=== PATIENT | female | born 1935 | race Caucasian/White ===

== ENCOUNTER → 2017-01-07 | Outpatient (CLI) | payer OTHER ==
[~2017-01-07] MED LIST: ALBU18002 INH; ALBU1AER9 INH; ATEN-173 PO; CHOL100010 PO; CITA20TA9 PO; CLON0.5T3 PO; CYAN10005 PO; DIAZ2TAB PO; FLUT1INH7 INH; FURO-85 PO; GLC500 PO; MULT-513 PO; NTRGSL/4 UT; POTA10CA28 PO; PRLSR20 PO; SPRIN INH; THIA1TAB11 PO; TIOTCAP INH; VITAMIN B1 PO; VITB2100 PO
[2017-01-07 17:28] LABS: HEMATOCRIT 44.8 % (37-47); MEAN CELL VOLUME 97.4 fL (80-100); MEAN CORPUSCULAR HEMOGLOBIN 32.8 pg (25-34); MEAN CORPUSCULAR HGB CONC 33.7 g/dl (32-36); MEAN PLATELET VOLUME 10.2 fL (7.4-10.4); PLATELET COUNT 302 K/uL (130-400)
[2017-01-07 17:43] LABS: ESTIMATED AVERAGE GLUCOSE 126 mg/dl; HA1C FLAG Normal (Normal)
[2017-01-07 17:44] LABS: ALT/SGPT 30 U/L (12-78); AST/SGOT 33 U/L (15-37); BLOOD UREA NITROGEN 12 mg/dl (7-18); BUN/CREATININE RATIO 12.4 (10-20); CALCIUM 9.3 mg/dl (8.5-10.1); CARBON DIOXIDE 30 mmol/L (21-32); CHLORIDE 101 mmol/L (98-107); CREATININE 0.94 mg/dl (0.60-1.20); GLUCOSE 93 mg/dl (70-99); POTASSIUM 4.1 mmol/L (3.5-5.1); SODIUM 140 mmol/L (136-145)
[2017-01-07 17:46] LABS: ALB/GLOB RATIO 1.1 (0.9-2); ALKALINE PHOSPHATASE 84 U/L (45-117)
--- NOTE | 2017-01-14 08:39 | CODING QUERY MEDICAL NECESSITY ---
SUPPORTING DIAGNOSIS NEEDED A supporting diagnosis is required for the test/procedure performed on this patient in order for us to be reimbursed by the patient's insurance. Please provide a supporting diagnosis for the following test/procedure listed below next to the test name along with your signature. *If there is no additional diagnosis for this patient that would support the following test/procedure please document that below next to the test/procedure. Test(s)/Procedure(s) that require a supporting diagnosis: * VITAMIN D 25-HYDROXY DIAGNOSIS: * VITAMIN B-12 LEVEL DIAGNOSIS: * DOS: 01/07/17 Provider Signature: Date: Thank you Shelley Bragg Health Information Management Once completed, please kindly fax back to [phone] For questions please call [phone]
== END | disposition home or self-care (01) ==
LOC: C.LABPVFM 12:09
PROVIDERS: ATTEND Family Medicine
DX: J45.901 Unspecified asthma with (acute) exacerbation (principal); R63.4 Abnormal weight loss; E11.9 Type 2 diabetes mellitus without complications; M81.0 Age-related osteoporosis without current pathological fracture; D64.9 Anemia, unspecified

== ENCOUNTER → 2017-06-16 | Outpatient (CLI) | payer OTHER ==
[2017-06-16 17:53] LABS: BLOOD UREA NITROGEN 19 mg/dl (7-18); BUN/CREATININE RATIO 18.9 (10-20); CALCIUM 9.4 mg/dl (8.5-10.1); CARBON DIOXIDE 29 mmol/L (21-32); CHLORIDE 103 mmol/L (98-107); GLUCOSE 78 mg/dl (70-99); POTASSIUM 4.1 mmol/L (3.5-5.1); SODIUM 138 mmol/L (136-145)
[2017-06-17 08:10] LABS: ESTIMATED AVERAGE GLUCOSE 126 mg/dl; HA1C FLAG Normal (Normal)
== END | disposition home or self-care (01) ==
LOC: C.LABPVFM 14:34
PROVIDERS: ATTEND Family Medicine
DX: E11.9 Type 2 diabetes mellitus without complications (principal); E55.9 Vitamin D deficiency, unspecified

== ENCOUNTER 2017-06-21 08:34 | Emergency (ER) | payer OTHER ==
[~2017-06-21] VITALS: Ht 154.9 cm; Wt 36.7 kg
[~2017-06-21 08:34] MED LIST changes: -ALBU18002 INH; -SPRIN INH; -THIA1TAB11 PO; -VITB2100 PO
[2017-06-21 08:38] VITALS: Ht 154.9 cm; Wt 36.7 kg
--- NOTE | 2017-06-21 09:10 | EMERGENCY ROOM VISIT NOTE ---
History Report prepared by Yony: Amy Eddy Under the Supervision of: Dr. Lidya Bob M.D. First contact with patient: 08:48 Chief Complaint: FOOD BOLUS Stated Complaint: PIECE OF SHRIMP STUCK IN THROAT Nursing Triage Summary: pt states,"i have a peice of shrimp stuck in my throat since last night." pt denies SOB. pt c/o trouble swallowing. History of Present Illness The patient is an 82 year old female who presents to the Emergency Room with complaints of a persistent food bolus that began last evening around 1829. The patient states that last night she got a piece of shrimp stuck in her throat. She states that she can swallow her own saliva, but she cannot swallow water or her medications. The patient states that when she tries to swallow she coughs and vomits her medication and water back up. 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 The patient states that she smokes less than a pack of cigarettes per day. 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 Source of History: patient Onset: 1829 last night Position: throat Quality: other (food bolus) Timing: other (persistent) Associated Symptoms: + cough, + vomiting Note: Associated Symptoms: cannot swallow medications and water Review of Systems See HPI for pertinent positives & negatives. A total of 10 systems reviewed and were otherwise negative. Past Medical & Surgical Medical Problems: (1) Asthma (2) Diabetes (3) Diverticulitis (4) Heart disease Family History FH: heart disease Social History Smoking Status: Current Every Day Smoker Alcohol Use: none Housing Status: lives alone Occupation Status: retired Current/Historical Medications Scheduled Atenolol (Tenormin), 25 MG PO QAM Cholecalciferol (Vitamin D), 1,000 UNIT PO DAILY Citalopram Hydrobromide (Celexa), 20 MG PO QAM Clonazepam (Klonopin), 0.5 MG PO HS Cyanocobalamin (Vitamin B-12), 1,000 MCG PO DAILY Fluticasone Furoate-Vilanterol (Breo Ellipta 200-25 Mcg/INH), 1 PUFFS INH DAILY Furosemide (Lasix), 10 MG PO QAM Metformin HCl (Metformin HCl), 500 MG PO BID Multivitamins/Minerals (Mvi With Minerals), 1 TAB PO DAILY Nitroglycerin (Nitrostat), 0.4 MG UT PRN Omeprazole (Prilosec), 20 MG PO DAILY Potassium Chloride (Micro-K Ext Rel), 10 MEQ PO DAILY Riboflavin (Vitamin B-2), 100 MG PO DAILY Thiamine Mononitrate (Vitamin B1), 100 MG PO DAILY Tiotropium [place] (Spiriva Handihaler), 1 CAP INH DAILY Scheduled PRN Albuterol Sulfate (Proair Respiclick), 1-2 PUFFS INH Q4 PRN for Shortness of Breath Diazepam (Valium), 2 MG PO Q8-12HR PRN for NECK PAIN Allergies Coded Allergies: Acetaminophen (Unverified Allergy, Unknown, GI SYMPTOMS, 06/21/17) Hydrocodone (Unverified Adverse Reaction, Unknown, N/V, 07/13/16) Meperidine (Unverified Adverse Reaction, Unknown, N/V, 07/13/16) Oxycodone (Unverified Adverse Reaction, Unknown, "GOOFY", 07/13/16) Propoxyphene (Unverified Adverse Reaction, Unknown, N/V, 07/13/16) Physical Exam Vital Signs Date Time Temp Pulse Resp B/P (MAP) Pulse Ox O2 Delivery O2 Flow Rate FiO2 06/21/17 14:35 77 18 101/48 (65) 90 Room Air Oxymask 06/21/17 14:30 78 18 103/53 (70) 98 Room Air Oxymask 06/21/17 14:25 87 20 113/98 (103) 98 Room Air Oxymask 06/21/17 14:20 80 20 112/58 (76) 98 Oxymask 5 06/21/17 14:15 95 22 134/66 (88) 98 Oxymask 5 06/21/17 14:10 96 22 142/72 (95) 99 Oxymask 10 06/21/17 14:05 36.9 98 22 141/75 (97) 99 Oxymask 10 06/21/17 14:00 36.9 98 22 140/78 (98) 99 Oxymask 10 06/21/17 12:18 68 14 120/76 94 Room Air 06/21/17 11:06 65 16 127/68 96 Room Air 06/21/17 10:01 62 17 141/66 99 06/21/17 09:53 64 06/21/17 08:41 100 Room Air 06/21/17 08:38 36.4 99 18 138/65 100 Room Air Physical Exam Vital signs reviewed. General: Cachectic, chronically ill-appearing female, in no significant distress , handling secretions. HEENT: No scleral icterus, PERRLA, neck supple. Atraumatic. Cardiovascular: Regular rate and rhythm, no extra sounds. Pulmonary: Clear to auscultation bilaterally, normal work of breathing. Abdomen: Soft, nontender, nondistended, positive bowel sounds. Musculoskeletal: Atraumatic, no peripheral edema. Neurologic: Patient awake alert and oriented x 3 Skin: Warm, dry, no rash Medical Decision & Procedures Laboratory Results 06/21/17 09:28 Red Blood Count 4.59, Mean Corpuscular Volume 95.4, Mean Corpuscular Hemoglobin 30.3, Mean Corpuscular Hemoglobin Concent 31.7, Mean Platelet Volume 9.3, Neutrophils (%) (Auto) 59.7, Lymphocytes (%) (Auto) 23.8, Monocytes (%) (Auto) 9.3, Eosinophils (%) (Auto) 6.3, Basophils (%) (Auto) 0.7, Neutrophils # (Auto) 3.52, Lymphocytes # (Auto) 1.40, Monocytes # (Auto) 0.55, Eosinophils # (Auto) 0.37, Basophils # (Auto) 0.04 06/21/17 09:28 Test 06/21/17 09:28 White Blood Count 5.89 K/uL (4.8-10.8) Red Blood Count 4.59 M/uL (4.2-5.4) Hemoglobin 13.9 g/dL (12.0-16.0) Hematocrit 43.8 % (37-47) Mean Corpuscular Volume 95.4 fL (80-100) Mean Corpuscular Hemoglobin 30.3 pg (25-34) Mean Corpuscular Hemoglobin Concent 31.7 g/dl (32-36) Platelet Count 273 K/uL (130-400) Mean Platelet Volume 9.3 fL (7.4-10.4) Neutrophils (%) (Auto) 59.7 % Lymphocytes (%) (Auto) 23.8 % Monocytes (%) (Auto) 9.3 % Eosinophils (%) (Auto) 6.3 % Basophils (%) (Auto) 0.7 % Neutrophils # (Auto) 3.52 K/uL (1.4-6.5) Lymphocytes # (Auto) 1.40 K/uL (1.2-3.4) Monocytes # (Auto) 0.55 K/uL (0.11-0.59) Eosinophils # (Auto) 0.37 K/uL (0-0.5) Basophils # (Auto) 0.04 K/uL (0-0.2) RDW Standard Deviation 46.4 fL (36.4-46.3) RDW Coefficient of Variation 13.3 % (11.5-14.5) Immature Granulocyte % (Auto) 0.2 % Immature Granulocyte # (Auto) 0.01 K/uL (0.00-0.02) Anion Gap 8.0 mmol/L (3-11) Est Creatinine Clear Calc Drug Dose 27.9 ml/min Estimated GFR () 69.0 Estimated GFR (Non- 59.5 BUN/Creatinine Ratio 20.9 (10-20) Calcium Level 9.3 mg/dl (8.5-10.1) Magnesium Level 2.1 mg/dl (1.8-2.4) Total Bilirubin 0.6 mg/dl (0.2-1) Direct Bilirubin 0.1 mg/dl (0-0.2) Aspartate Amino Transf (AST/SGOT) 17 U/L (15-37) Alanine Aminotransferase (ALT/SGPT) 18 U/L (12-78) Alkaline Phosphatase 78 U/L (45-117) Total Protein 7.1 gm/dl (6.4-8.2) Albumin 3.3 gm/dl (3.4-5.0) Lipase 97 U/L (73-393) Laboratory results per my review. Medications Administered Medications (Trade) Dose Ordered Sig/Nancy Route Start Time Stop Time Status Last Admin Dose Admin Sodium Chloride 1,000 ml @ 125 mls/hr Q8H STAT IV 06/21/17 09:17 06/21/17 17:16 06/21/17 09:29 125 MLS/HR ED Course 0858: Past medical records reviewed. The patient was evaluated in room B10. A complete history and physical examination was performed. 0917: Ordered Sodium Chloride 1000 ml @ 125 mls/hr IV. 0920: I discussed the patients case with Dr. Billings, Gastroenterology. She will be in to take the patient to the OR for further treatment. 1130: Per case management, the OR will be ready for the patient around 1230, Dr. Billings will be in then. 1155: I reevaluated the patient and she is doing well. I updated her on the treatment plan and she is going to be evaluated for further treatment. She will be taken to the OR. Medical Decision The patient is an 82 year old female who presents to the ED with complaints of a food bolus. Differentials include Food bolus, esophageal stricture, Zenker's diverticulum, esophagitis, ruptured esophagus This patient was evaluated and appeared to be in no significant distress. She does appear to be chronically ill and has multiple medical problems. Patient states she has had food stuck in her esophagus since last evening. Records from [facility] were obtained and reveal the patient has a Zenker' s diverticulum and has had surgery on this in the past. The last of which was in November 2016. Dr. Billings of [facility] gastroenterology was contacted. She agreed to evaluate the patient for further management. The patient was held in the emergency department with IV fluids running until the OR was available. The patient and family were updated to the plan and agreed. Please see Dr. Billings's notes for further details regarding disposition. Medication Reconcilliation Current Medication List: was personally reviewed by me Blood Pressure Screening Patient's blood pressure: Normal blood pressure Blood pressure disposition: Did not require urgent referral Consults Time Called: [phone] Consulting Physician: Dr. Billings, Gastroenterology Returned Call: [phone] I discussed the patients case with Dr. Billings Gastroenterology. She will be in to take the patient to the OR for further treatment. Impression Primary Impression: Food impaction of esophagus Additional Impression: Zenkers diverticulum Scribe Attestation The scribe's documentation has been prepared under my direction and personally reviewed by me in its entirety. I confirm that the note above accurately reflects all work, treatment, procedures, and medical decision making performed by me. Departure Information Dispostion Other (The OR) Referrals Newton De Luna M.D. (PCP) Patient Instructions [facility] Problem Qualifiers
[2017-06-21] MEDS ORDERED: THIA1TAB11 PO (09:12)
[2017-06-21] MEDS ORDERED: SPRIN INH (09:12)
[2017-06-21] MEDS ORDERED: VITB2100 PO (09:12)
[2017-06-21] MEDS ORDERED: ALBU18002 INH (09:12)
[2017-06-21] MEDS ORDERED: CHOL100010 PO (09:12)
[2017-06-21] MEDS ORDERED: SODIUM CHLORIDE 0.9% 1000ML 1,000 ML IV STA (09:17)
[2017-06-21 09:57] LABS: BASO % 0.7 %; BASO ABS # 0.04 K/uL (0-0.2); COMPLETE YES; EOS % 6.3 %; HEMATOCRIT 43.8 % (37-47); IG% 0.2 %; LYMPH % 23.8 %; MEAN CELL VOLUME 95.4 fL (80-100); MEAN CORPUSCULAR HEMOGLOBIN 30.3 pg (25-34); MEAN CORPUSCULAR HGB CONC 31.7 g/dl (32-36); MEAN PLATELET VOLUME 9.3 fL (7.4-10.4); MONO % 9.3 %; NEUT % 59.7 %; PLATELET COUNT 273 K/uL (130-400); RED BLOOD COUNT 4.59 M/uL (4.2-5.4); WHITE BLOOD COUNT 5.89 K/uL (4.8-10.8)
[2017-06-21 10:13] LABS: BUN/CREATININE RATIO 20.9 (10-20); CALCIUM 9.3 mg/dl (8.5-10.1); CREATININE 0.9 mg/dl (0.60-1.20); MAGNESIUM 2.1 mg/dl (1.8-2.4); POTASSIUM 4.4 mmol/L (3.5-5.1)
[2017-06-21 12:18] VITALS: O2SAT 94
[2017-06-21] MEDS ORDERED: SODIUM CHLORIDE 0.9% 500ML 500 ML IV ONE (13:03)
[2017-06-21] MEDS ORDERED: FENTANYL CITRATE INJ 50 MCG/1 ML 2 ML VIAL ONE (13:03)
--- NOTE | 2017-06-21 13:03 | Endo History and Physical ---
History & Physical Date of Service: Jun 21, 2017. Chief Complaint: food impaction; dysphagia; known Zenkers Referring Physician: Dr. Bob History of Present Illness Patient with known Zenkers and h/o endoscopic incision treatment in November. She ate shrimp - 2 bites - at 6:30 yesterday evening and has not been able to eat or drink since that time. Past Medical History Diabetes, Asthma, Anxiety, Heart Disease, Valve Replacement Past Surgical History Hx Cardiac Surgery: Yes (VALVE REPLACEMENT SURGERY 98) Hx Abdominal Surgery: Yes (APPY, OPEN VIVIAN) Hx Post-Op Nausea and Vomiting: No Hx Cancer Surgery: No Hx Thoracic Surgery: No Hx Orthopedic: No Hx Urinary Tract Surgery: No Social History Smoking Status: Current Every Day Smoker Hx Substance Use: No Hx Alcohol Use: No Allergies Coded Allergies: Acetaminophen (Unverified Allergy, Unknown, GI SYMPTOMS, 06/21/17) Hydrocodone (Unverified Adverse Reaction, Unknown, N/V, 07/13/16) Meperidine (Unverified Adverse Reaction, Unknown, N/V, 07/13/16) Oxycodone (Unverified Adverse Reaction, Unknown, "GOOFY", 07/13/16) Propoxyphene (Unverified Adverse Reaction, Unknown, N/V, 07/13/16) Current Medications Reported Home Medications Medications Dose Route/Sig Max Daily Dose Days Date Category Dose Instructions Vitamin B-2 (Riboflavin) 100 Mg Tab 100 Mg PO DAILY 06/21/17 Reported Vitamin B1 (Thiamine Mononitrate) 100 Mg Tab 100 Mg PO DAILY 06/21/17 Reported Vitamin D (Cholecalciferol) 1,000 Unit Tab 1,000 Unit PO DAILY 06/21/17 Reported Spiriva Handihaler (Tiotropium [place]) 5 Puff/90 Mcg Aerp 1 Cap INH DAILY 06/21/17 Reported Proair Respiclick (Albuterol Sulfate) 108 Mcg/Act Aer 1-2 Puffs INH Q4 PRN 06/21/17 Reported Prilosec (Omeprazole) 20 Mg Capcr 20 Mg PO DAILY 07/15/16 Reported Klonopin (Clonazepam) 0.5 Mg Tab 0.5 Mg PO HS 07/13/16 Reported Vitamin B-12 (Cyanocobalamin) 1,000 Mcg Tab 1,000 Mcg PO DAILY 07/13/16 Reported Micro-K Ext Rel (Potassium Chloride) 10 Meq Capcr 10 Meq PO DAILY 07/13/16 Reported Nitrostat (Nitroglycerin) 0.4 Mg Tab 0.4 Mg UT PRN 07/13/16 Reported Mvi With Minerals (Multivitamins/Minerals) Tab 1 Tab PO DAILY 07/13/16 Reported Valium (Diazepam) 2 Mg Tab 2 Mg PO Q8-12HR PRN 07/13/16 Reported Breo Ellipta 200-25 Mcg/INH (Fluticasone Furoate-Vilanterol) 1 Inh Inh 1 Puffs INH DAILY 07/13/16 Reported RINSE MOUTH AFTER EACH USE Metformin HCl 500 Mg Tab 500 Mg PO BID 03/16/15 Reported Celexa (Citalopram Hydrobromide) 20 Mg Tab 20 Mg PO QAM 03/16/15 Reported Tenormin (Atenolol) 25 Mg Tab 25 Mg PO QAM 03/16/15 Reported Lasix (Furosemide) 20 Mg Tab 10 Mg PO QAM 03/16/15 Reported Vital Signs Weight (Kilograms): 36.700 Height (Feet): 5 Height (Inches): 1.00 Date Time Temp Pulse Resp B/P (MAP) Pulse Ox O2 Delivery O2 Flow Rate FiO2 06/21/17 12:18 68 14 120/76 94 Room Air 06/21/17 11:06 65 16 127/68 96 Room Air 06/21/17 10:01 62 17 141/66 99 06/21/17 09:53 64 06/21/17 08:41 100 Room Air 06/21/17 08:38 36.4 99 18 138/65 100 Room Air Physical Exam General Appearance: WD/WN, no apparent distress Assessment and Plan Emergent EGD for food bolus removal in the OR today
[2017-06-21] MEDS ORDERED: PROPOFOL IV EMULSION 10 MG/ML 20 ML VIAL IV ONE (13:34)
[2017-06-21] MEDS ORDERED: LIDOCAINE HCL 2% 2 ML VIAL (20MG/ML) ONE (13:35)
[2017-06-21] MEDS ORDERED: ONDANSETRON INJ 2 MG/ML 2 ML VIAL ONE (13:35)
[2017-06-21] MEDS ORDERED: SUCCINYLCHOLINE CHLORIDE 20 MG/ML 10 ML VIAL IV ONE (13:35)
[2017-06-21] MEDS ORDERED: LABETALOL HCL IV 5 MG/ML 20ML IV ONE (13:35)
--- NOTE | 2017-06-21 13:41 | GI REPORT ---
Procedure Date: 06/21/2017 1:14 PM Procedure: Upper GI endoscopy Indications: Dysphagia, Foreign body in the esophagus Medicines: Monitored Anesthesia Care Complications: No immediate complications. Estimated blood loss: None. Estimated Blood Loss: Estimated blood loss: none. Procedure: Pre-Anesthesia Assessment: - Prior to the procedure, a History and Physical was performed, and patient medications, allergies and sensitivities were reviewed. The patient's tolerance of previous anesthesia was reviewed. - The risks and benefits of the procedure and the sedation options and risks were discussed with the patient. All questions were answered and informed consent was obtained. - Patient identification and proposed procedure were verified prior to the procedure by the physician and the nurse. The procedure was verified in the pre-procedure area in the procedure room. - Mental Status Examination: alert and oriented. Airway Examination: normal oropharyngeal airway and neck mobility. Respiratory Examination: clear to auscultation. CV Examination: normal. Abdominal Examination: bowel sounds present, abdomen soft and non-tender, no masses or organomegaly noted. - ASA Grade Assessment: III - A patient with severe systemic disease. After obtaining informed consent, the endoscope was passed under direct vision. Throughout the procedure, the patient's blood pressure, pulse, and oxygen saturations were monitored continuously. The scope was introduced through the mouth, and advanced to the second part of duodenum. The upper GI endoscopy was accomplished without difficulty. The patient tolerated the procedure well. Findings: A Zenker's diverticulum with a large opening and impacted food was found. Removal of food was accomplished with a cap and suction. Several large pieces of shrimp removed. Estimated blood loss: none. The stomach was normal. The examined duodenum was normal. Impression: - Zenker's diverticulum with impacted food. Food removed. - Normal stomach. - Normal examined duodenum. Recommendation: - Soft diet. - Return to primary care physician as previously scheduled. - Discharge patient to home. Mary Ellen Billings D.O. Mary Ellen Billings DO 06/21/2017 1:40:42 PM This report has been signed electronically. Note Initiated On: 06/21/2017 1:14 PM I attest to the content of the Intraoperative Record and orders documented therein, exceptions below
--- NOTE | 2017-06-21 13:46 | Discharge Instructions ---
Endoscopy Patient Instructions Date / Procedure(s) Performed Jun 21, 2017. EGD Allergy Information Coded Allergies: Acetaminophen (Unverified Allergy, Unknown, GI SYMPTOMS, 06/21/17) Hydrocodone (Unverified Adverse Reaction, Unknown, N/V, 07/13/16) Meperidine (Unverified Adverse Reaction, Unknown, N/V, 07/13/16) Oxycodone (Unverified Adverse Reaction, Unknown, "GOOFY", 07/13/16) Propoxyphene (Unverified Adverse Reaction, Unknown, N/V, 07/13/16) Discharge Date / Findings Jun 21, 2017. Large Zenkers diverticulum containing impacted food Medication Instructions Restart Stopped Medication(s): OK to resume all home medications as above Provider Instructions Activity Restrictions - No exercising or heavy lifting for 24 hours. - Do not drink alcohol the day of the procedure. - Do not drive a car or operate machinery until the day after the procedure. - Do not make any important decisions or sign important papers in 24 hours after the procedure. Following Day: - Return to full activity which may include returning to work/school. Diet Start your diet with liquids and light foods (jello, soup, juice, toast). Then eat ONLY soft foods. Please chew food extremely well before attempting to swallow it. Treatment For Common After Affects For mild abdominal pain, bloating, or excessive gas: - Rest - Eat lightly - Lie on right side Follow-Up Information Please contact Dr. Yang's office at [facility] to discuss repeating endoscopic treatment for the Zenkers diverticulum. [phone] Anesthesia Information What You Should Know You have had a procedure that required some medicine to reduce anxiety and discomfort. This treatment is called moderate sedation. After receiving the treatment, you may be sleepy, but you will be able to breathe on your own. The effects of the treatment may last for several hours. Follow these instructions along with Activity/Diet recommendations noted above: * Do NOT do anything where dizziness or clumsiness would be dangerous. * Rest quietly at home today, then you can be up and about tomorrow. * Have a responsible person stay with you the rest of today. * You may have had an I.V. today. If so, you may take the dressing off later today. Recommendations Call your doctor if: * Trouble breathing * Continuous vomiting for more than 24 hours * Temperature above 101 degrees * Severe abdominal pain or bloating * Pain not relieved by pain medicine ordered * There is increased drainage or redness from any incision * A large amount of rectal bleeding greater than 2-3 tablespoons. (If you had a polyp/s removed or have hemorrhoids, a small amount of blood - from the rectum is to be expected.) * You have any unanswered questions or concerns. IN THE EVENT OF A SERIOUS EMERGENCY, GO TO THE NEAREST EMERGENCY ROOM Your discharge instructions were prepared by provider Mary Ellen Billings. Patient Instructions Signature Page Hetal Lazo Patient (or Guardian) Signature/Date: I have read and understand the instructions given to me by my caregivers. Caregiver/RN/Doctor Signature/Date: The above-named patient and/or guardian has received patient instructions on this date. + Original Patient Signature Page (only) stays with chart. Please make copy for patient.
[2017-06-21] MEDS ORDERED: EpHEDrine SULFATE INJ 50 MG/ML AMP IV PRN (14:30)
[2017-06-21] MEDS ORDERED: ATROPINE SULFATE 0.1 MG/ML 5ML SYR IV PRN (14:30)
[2017-06-21] MEDS ORDERED: ONDANSETRON INJ 2 MG/ML 2 ML VIAL IV PRN (14:30)
[2017-06-21 14:35] VITALS: BP 101/48; PULSE 77; O2SAT 90
--- NOTE | 2017-06-21 14:54 | Anesthesiology Progress Note ---
Anesthesia Post Op Note Date & Time Jun 21, 2017 at 14:54 Vital Signs Pain Intensity: 0 Vital Signs Past 12 Hours Date Time Temp Pulse Resp B/P (MAP) Pulse Ox O2 Delivery O2 Flow Rate FiO2 06/21/17 14:35 77 18 101/48 (65) 90 Room Air Oxymask 06/21/17 14:30 78 18 103/53 (70) 98 Room Air Oxymask 06/21/17 14:25 87 20 113/98 (103) 98 Room Air Oxymask 06/21/17 14:20 80 20 112/58 (76) 98 Oxymask 5 06/21/17 14:15 95 22 134/66 (88) 98 Oxymask 5 06/21/17 14:10 96 22 142/72 (95) 99 Oxymask 10 06/21/17 14:05 36.9 98 22 141/75 (97) 99 Oxymask 10 06/21/17 14:00 36.9 98 22 140/78 (98) 99 Oxymask 10 06/21/17 12:18 68 14 120/76 94 Room Air 06/21/17 11:06 65 16 127/68 96 Room Air 06/21/17 10:01 62 17 141/66 99 06/21/17 09:53 64 06/21/17 08:41 100 Room Air 06/21/17 08:38 36.4 99 18 138/65 100 Room Air Notes Mental Status: alert / awake / arousable, participated in evaluation Pt Amnestic to Procedure: Yes Nausea / Vomiting: adequately controlled Pain: adequately controlled Airway Patency, RR, SpO2: stable & adequate BP & HR: stable & adequate Hydration State: stable & adequate Anesthetic Complications: no major complications apparent
== END 2017-06-21 12:50 | disposition home or self-care (01) ==
LOC: C.EDB 08:36
DX: T18.128A Food in esophagus causing other injury, initial encounter (principal); X58.XXXA Exposure to other specified factors, initial encounter; K22.5 Diverticulum of esophagus, acquired; K57.92 Diverticulitis of intestine, part unspecified, without perforation or abscess without bleeding; E11.9 Type 2 diabetes mellitus without complications; J45.909 Unspecified asthma, uncomplicated; I51.9 Heart disease, unspecified; F17.200 Nicotine dependence, unspecified, uncomplicated; Z79.84 Long term (current) use of oral hypoglycemic drugs; Z79.899 Other long term (current) drug therapy; Z88.5 Allergy status to narcotic agent; Z88.6 Allergy status to analgesic agent; Z88.8 Allergy status to other drugs, medicaments and biological substances; Z82.49 Family history of ischemic heart disease and other diseases of the circulatory system

== ENCOUNTER → 2017-09-24 | Outpatient (CLI) | payer OTHER ==
[~2017-09-24] MED LIST changes: +ALBU18002 INH; -ALBU1AER9 INH; +SPRIN INH; +THIA1TAB11 PO; -TIOTCAP INH; -VITAMIN B1 PO; +VITB2100 PO
--- NOTE | 2017-09-24 09:11 | DIAGNOSTIC IMAGING REPORT ---
DOUBLE CONTRAST BARIUM ESOPHAGRAM CLINICAL HISTORY: Dysphagia. COMPARISON STUDY: Video swallow study dated 10/27/2016. TECHNIQUE: A standard air contrast barium esophagram is performed. Multiple spot images of the esophagus are acquired both upright and prone. FINDINGS: The patient swallowed barium without difficulty. A large Zenker's diverticulum is similar to previous. The barium pill was temporarily lodged at the level of these Zenker's diverticulum before passing into the stomach. The mucosal pattern is normal. There is no evidence of intrinsic or extrinsic mass lesion. Moderate dysmotility is seen in the mid to distal third. Although the patient coughed, no aspiration was observed during the examination. The gastroesophageal junction distended normally. No gastroesophageal reflux could be elicited by having the patient perform the Valsalva maneuver. Midline sternotomy wires are noted. Fluoroscopy time: 1.2 minutes. Fluoroscopic images: 30 IMPRESSION: 1. Esophageal dysmotility. 2. A large Zenker's diverticulum is similar to previous. 3. The barium pill was temporarily lodged at the level of the Zenker's diverticulum before passing into the stomach. 4. Although the patient coughed during the examination no aspiration was identified. Electronically signed by: Adrian Johnson M.D. 09/24/2017 9:09 AM Dictated Date/Time: 09/24/2017 9:00 AM
== END | disposition home or self-care (01) ==
LOC: C.RAD 08:22
PROVIDERS: ATTEND Nurse Practitioner Family
DX: R13.12 Dysphagia, oropharyngeal phase (principal); K22.5 Diverticulum of esophagus, acquired

== ENCOUNTER → 2018-01-04 | Outpatient (CLI) | payer OTHER ==
[~2018-01-04] MED LIST changes: +CEPH-571 PO; +MRLP17 PO; +NUTR-7 PO; -THIA1TAB11 PO; -VITB2100 PO
[2018-01-04 12:23] LABS: BASO % 0.2 %; BASO ABS # 0.02 K/uL (0-0.2); EOS % 0.4 %; EOS ABS # 0.05 K/uL (0-0.5); HEMATOCRIT 36.1 % (37-47); IG# 0.06 K/uL (0.00-0.02); LYMPH ABS # 1.16 K/uL (1.2-3.4); MEAN CELL VOLUME 92.3 fL (80-100); MEAN CORPUSCULAR HEMOGLOBIN 30.7 pg (25-34); MEAN CORPUSCULAR HGB CONC 33.2 g/dl (32-36); MEAN PLATELET VOLUME 9.2 fL (7.4-10.4); MONO % 10.2 %; MONO ABS # 1.31 K/uL (0.11-0.59); NEUT % 79.7 %; PLATELET COUNT 365 K/uL (130-400); RED CELL DISTRIBUTION WIDTH CV 14.6 % (11.5-14.5); RED CELL DISTRIBUTION WIDTH SD 48.9 fL (36.4-46.3)
[2018-01-04 13:01] LABS: ALBUMIN 2.4 gm/dl (3.4-5.0); ALT/SGPT 19 U/L (12-78); AST/SGOT 24 U/L (15-37); BLOOD UREA NITROGEN 15 mg/dl (7-18); CARBON DIOXIDE 26 mmol/L (21-32); CREATININE 0.82 mg/dl (0.60-1.20); GLUCOSE 77 mg/dl (70-99); POTASSIUM 3.4 mmol/L (3.5-5.1); SODIUM 136 mmol/L (136-145)
[2018-01-04 13:03] LABS: ALKALINE PHOSPHATASE 84 U/L (45-117); TOTAL PROTEIN 6.8 gm/dl (6.4-8.2)
== END | disposition home or self-care (01) ==
LOC: C.LABPVFM 11:12
PROVIDERS: ATTEND Nurse Practitioner
DX: E87.6 Hypokalemia (principal); C18.9 Malignant neoplasm of colon, unspecified; D64.9 Anemia, unspecified

== ENCOUNTER → 2018-02-18 | Outpatient (CLI) | payer OTHER ==
[~2018-02-18] MED LIST changes: -CEPH-571 PO
--- NOTE | 2018-02-18 12:58 | DIAGNOSTIC IMAGING REPORT ---
ULTRASOUND RIGHT LOWER EXTREMITY VENOUS CLINICAL HISTORY: Right leg swelling. COMPARISON STUDY: No priors. TECHNIQUE: Real-time, grayscale, and color Doppler sonography of the deep veins of the right lower extremity was performed from the inguinal crease to the calf. Compression and augmentation were utilized. FINDINGS: There is no sonographic evidence of deep venous thrombosis identified in the right lower extremity. The common femoral, superficial femoral, and popliteal veins are patent and normally compressible. The greater saphenous vein and the profunda femoris vein at the junction with the common femoral vein are clear. The visualized calf veins are patent. A small popliteal cyst measures 2.2 x 1.6 x 1.2 cm. IMPRESSION: 1. There is no sonographic evidence of deep venous thrombosis identified in the right lower extremity. 2. Small popliteal cyst. Electronically signed by: Adrian Johnson M.D. 02/18/2018 12:57 PM Dictated Date/Time: 02/18/2018 12:56 PM
== END | disposition home or self-care (01) ==
LOC: C.ULTR 11:55
PROVIDERS: ATTEND Nurse Practitioner
DX: M79.669 Pain in unspecified lower leg (principal); M79.89 Other specified soft tissue disorders